=== PATIENT | male | born 1940 | race Hispanic/Latino ===

== ENCOUNTER → 2020-03-03 | Outpatient (CLI) | payer OTHER ==
[2020-03-03 15:01] LABS: BILIRUBIN,URINE NEGATIVE (NEGATIVE); UROBILINOGEN,URINE NORMAL (NEGATIVE)
[2020-03-03 15:16] LABS: APPEARANCE,URINE CLEAR (CLEAR); UA COLOR YELLOW (YELLOW)
== END | disposition home or self-care (01) ==
LOC: NPLAB 14:40
PROVIDERS: ATTEND Internal Medicine
DX: F03.91 Unspecified dementia, unspecified severity, with behavioral disturbance (principal)
CPT/HCPCS: 81002; 87804

== ENCOUNTER 2020-09-05 16:47 | Emergency (ER) | payer MEDICARE, OTHER ==
[2020-09-05 16:52] VITALS: BP 122/68
--- NOTE | 2020-09-05 17:18 | ER.PDOC ---
General Chief Complaint: Requesting Medical Care Stated Complaint: RIGHT ARM INJURY Time seen by MD: 17:11 Source: patient Exam Limitations: other (ADVANCED DEMENTIA) History of Present Illness Initial Comments UNWITNESSED FALL AT CO Occurred: this morning Where: home Severity: moderate Modifying Factors: pain on movement Allergies: Coded Allergies: No Known Allergies (Unverified , 09/05/20) Reviewed Nursing Reviewed: Vital Signs, Abn. Noted Review of Systems All Other Systems: Reviewed and Negative Physical Exam General Appearance: Alert, No Apparent Distress Hand: swelling Wrist: see diagram, tenderness, limited ROM due to pain Forearm/Elbow: nml inspection, non-tender, nml ROM Arm/Shoulder: nml inspection, non-tender, nml ROM 1 - TENDER, DEFORMITY 1 - TENDER, DEFORMITY Neuro/Vasc/Tendon: sensation nml, motor nml, no vascular compromise, tendon function nml Skin: warm/dry Head/ENT: nml inspection, pharynx nml Neck/Back: nml inspection, non-tender Respiratory: chest non-tender, breath sounds nml CVS: heart sounds normal Abdomen: non-tender, no organomegaly Splinting Splinting : Hand-Made Type: orthoglass Splint: sugar-tong Results/Orders Results/Orders Orders - CADEN GRAVES MD Xr Wrist Rt (09/05/20 17:12) Vital Signs Date Time Temp Pulse Resp B/P (MAP) Pulse Ox O2 Delivery O2 Flow Rate FiO2 09/05/20 16:52 98.0 65 16 97 09/05/20 16:52 98.0 65 16 09/05/20 16:52 98.0 65 16 122/68 (86) 97 Room Air ER DEPART Departure Time of Disposition: 18:00 Disposition: 01 HOME, SELF-CARE Impression: Primary Impression: Wrist fracture Condition: Improved Referrals: PCP,UNKNOWN (PCP) PRIMARY CARE PROVIDER Duration or Time Spent with Pa: 23M CADEN GRAVES MD Sep 05, 2020 17:18
--- NOTE | 2020-09-05 17:30 | NUR ---
ORTHO SUGARTONGE SPLINT PLACED TO R FOREARM AND PLACED IN IMMOBILIZER. PT TOLERATED WELL. CAREGIVER INSTRUCTED PT WILL NEED TO HAVE AN APPT MADE WITH DR CRESPO OFFICE ON MONDAY. SHE HAS VOICED UNDERSTANDING.
--- NOTE | 2020-09-05 17:37 | DIREP ---
PROCEDURE:XRAY WRIST MIN 3VW-RT COMPARISON:None. INDICATIONS:fall FINDINGS: BONES:Mildly comminuted fractures of the distal radial metaphysis and ulnar metaphysis. Minimal radial displacement of radius and ulnar fractures. No significant angulation seen. Old 5th metacarpal shaft fracture. JOINTS:Diffuse soft tissue swelling. Moderate 1st CMC and triscaphe degenerative changes. SOFT TISSUES:Diffuse soft tissue swelling.. OTHER:No additional findings. CONCLUSION: 1. Distal radius and ulnar fractures. 2. Osteoarthritis. Dictated by: Juarez Morales M.D. on 09/05/2020 at 05:35 PM
== END 2020-09-05 18:00 | disposition home or self-care (01) ==
LOC: ER 16:47
DX: S52.91XA Unspecified fracture of right forearm, initial encounter for closed fracture (principal); S52.691A Other fracture of lower end of right ulna, initial encounter for closed fracture; W19.XXXA Unspecified fall, initial encounter; Y93.89 Activity, other specified; Y92.098 Other place in other non-institutional residence as the place of occurrence of the external cause; Y99.8 Other external cause status
CPT/HCPCS: 29125; 99283; 73110-RT

== ENCOUNTER 2020-10-28 14:34 | Emergency (ER) | payer MEDICARE, MEDICAID ==
[~2020-10-28] VITALS: Ht 172.7 cm; Wt 63.5 kg
[2020-10-28 14:35] VITALS: BP 130/56
--- NOTE | 2020-10-28 14:54 | NUR ---
ARRIVAL PT ARRIVED TO ED WITH C/O RIGHT EAR LAC THAT OCCURED WHEN PT FELL. PT UNABLE TO ANSWER MEDICAL QUESTIONS OR QUESTIONS RELATED TO FALL D/T DEMENTIA. EMS REPORTS THAT [facility] STAFF REPORTED THAT PT IS ALERT AT HIS BASELINE. PT HAS LACERATION TO RIGHT EAR. PT HAS SIGNIFICANT SWELLING TO RIGHT WRIST. EMS REPORTS THAT [facility] STATES THAT IS IT FROM A PREVIOUS FRACTURE AND PT REFUSES TO WEAR HIS SPLINT. BEDSIDE MONITORS APPLIED. VITAL SIGNS STABLE. BED IN LOW LOCKED POSITION. PEARLA. 20G IV PLACED TO LEFT FOREARM. BLOOD COLLECTED AND TAKEN TO LAB.
--- NOTE | 2020-10-28 15:07 | ER.PDOC ---
General Chief Complaint: General Complaint Stated Complaint: FALL TRAVEL OUT OF US: No Time seen by MD: 15:01 Source: patient, EMS Exam Limitations: physical impairment History of Present Illness Initial Comments patient fell today unwitnessed at the senior living, patient fell previously and fracture right wrist. patient is demented and cannot provide history. Timing/Duration: unsure Allergies: Coded Allergies: No Known Allergies (Unverified , 09/05/20) Past Medical History Medical History: cancer, diabetes, hypertension, other Social History Drug Use: none Review of Systems Constitutional: denies fever EENTM: denies eye pain Respiratory: denies cough Cardiovascular: denies chest pain Gastrointestinal: denies abdominal pain Genitourinary: denies pain Musculoskeletal: denies neck pain Skin: denies rash Psychiatric/Neurological: denies headache Hematologic/Lymphatic: denies anemia Immunological/Allergic: denies food allergy Physical Exam General Appearance: No Apparent Distress EENT: eyes nml inspection Neck: Non-Tender Respiratory: chest non-tender, lungs clear CVS: reg rate & rhythm Gastrointestinal: Non Tender Back: Normal Inspection Extremities: Normal Range of Motion 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 ED LACERATION WOUND REPAIR # of Wounds/Lacerations Presen: 1 Wound Length (cm): 1 Wound cleaned: betadine Anesthesia type: Not Applicable/None Wound's Depth, Shape: linear Wound Explored: clean Wound Repaired With: dermabond Layer Closure?: No Retention sutures placed: No Sterile Dressing Applied?: No Sling Applied?: No Results/Orders Results/Orders Orders - DALE MADSEN MD Cbc With Auto Diff (10/28/20 15:03) Comprehensive Metabolic Panel (10/28/20 15:03) Creatine Kinase (10/28/20 15:03) Creatine Kinase Mb (10/28/20 15:03) Troponin I (10/28/20 15:03) PT (10/28/20 15:03) Partial Thromboplastin Time. (10/28/20 15:03) Xr Chest 1v (10/28/20 15:03) Ekg-Routine (10/28/20 15:03) Ct Head Wo Contrast (10/28/20 15:03) Ct Cervical Spine (10/28/20 15:03) Ct Abd/Pel With Iv Contrast (10/28/20 15:03) Xr Forearm Rt (10/28/20 15:03) Tetanus-Diphtheria Toxoids/Pf (Tenivac S (10/28/20 17:00) Vital Signs Date Time Temp Pulse Resp B/P (MAP) Pulse Ox O2 Delivery O2 Flow Rate FiO2 10/28/20 16:01 98.3 64 14 108/70 (83) 97 Room Air 10/28/20 14:35 98.3 66 14 10/28/20 14:35 98.3 66 14 130/56 (80) 97 Room Air 10/28/20 14:35 98.3 66 14 97 Laboratory Tests Test 10/28/20 14:40 White Blood Count 10.3 10^3/uL (4.5-11.0) Red Blood Count 3.23 10^6/uL (4.50-5.90) L Hemoglobin 11.0 g/dL (13.9-16.3) L Hematocrit 33.6 % (37.0-53.0) L Mean Corpuscular Volume 104.0 fL (78-100) H Mean Corpuscular Hemoglobin 34.1 pg (26-34) H Mean Corpuscular Hemoglobin Concent 32.7 g/dL (33-36.5) L Red Cell Distribution Width 14.0 % (11.5-14.5) Platelet Count 233 10^3/uL (150-400) Mean Platelet Volume 10.0 fL (7.8-11.0) Neutrophils (%) (Auto) 83.6 % (41.0-85.0) Lymphocytes (%) (Auto) 6.0 % (24.0-44.0) *L Monocytes (%) (Auto) 8.6 % (5.0-12.0) Neutrophils # (Auto) 8.6 10^3/uL (1.8-7.7) H Lymphocytes # (Auto) 0.62 10^3/uL1 (1.0-4.8) L Monocytes # (Auto) 0.9 10^3/uL (0.3-0.8) H Absolute Immature Granulocyte (auto 0.05 10^3 u/L (0-2) Absolute Eosinophils (auto) 0.1 10^3/uL (0.0-0.2) Immature Granulocytes % 0.50 % (0.00-0.50) Eosinophils % 1.1 % (0.0-5.0) Basophils % 0.2 % (0.0-0.2) Basophils # 0.0 10^3/uL (0.0-0.1) Prothrombin Time 11.8 SEC (9.3-11.3) H Prothrombin Time INR (Non-Therap) 1.2 Activated Partial Thromboplast Time 27.6 SEC (24.67-30.72) Sodium Level 137 mmol/L (132-145) Potassium Level 4.1 mmol/L (3.6-5.2) Chloride Level 100.0 mmol/L (96-109) Carbon Dioxide Level 31.3 mmol/L (20.0-32) Anion Gap 9.8 Blood Urea Nitrogen 24 mg/dL (7-18) H Creatinine 0.93 mg/dL (0.59-1.40) Estimated GFR () 94.6 (>/=60) Est GFR (CKD-EPI)(Non-Afr [place]ese) 78.2 (>/=60) BUN/Creatinine Ratio 25.0 Glucose Level 98 mg/dL (70-110) Calcium Level 8.9 mg/dL (8.4-10.5) Total Bilirubin 0.3 mg/dL (0.2-1.0) Aspartate Amino Transferase (AST) 44 U/L (0-35) H Alanine Aminotransferase (ALT) 18 U/L (12-78) Alkaline Phosphatase 115 U/L (50-136) Total Creatine Kinase 640 U/L (39-308) H Creatine Kinase MB 36.8 ng/mL (0.5-3.6) *H Troponin I < 0.02 ng/mL (0.00-0.05) Total Protein 7.2 g/dL (6.4-8.2) Albumin 3.2 g/dL (3.4-5.0) L Globulin 4.0 Albumin/Globulin Ratio 0.800 Progress Progress volar splint rue by nursing staff. head ct nad cervical ct nad ER DEPART Departure Time of Disposition: 16:49 Disposition: 01 HOME, SELF-CARE Impression: Primary Impression: Fall Additional Impression: Radius and ulna distal fracture Condition: Stable Patient Instructions: Fall Prevention and Home Safety, Laceration Care, Adult, Radius Fracture with Rehab-SportsMed Referrals: PCP,UNKNOWN (PCP) PRIMARY CARE PROVIDER DALE HURLEY MD, GIANG T MD Additional Instructions: return for any medical concerns. Duration or Time Spent with Pa: 15 Problem Qualifiers DALE MADSEN MD Oct 28, 2020 15:07
[2020-10-28 15:14] LABS: BASOPHIL % 0.2 % (0.0-0.2); EOSINOPHIL # 0.1 10^3/uL (0.0-0.2); EOSINOPHIL % 1.1 % (0.0-5.0); LYMPHOCYTES # 0.62 10^3/uL1 (1.0-4.8); MEAN CORP HGB 34.1 pg (26-34); MONOCYTES # 0.9 10^3/uL (0.3-0.8); MONOCYTES % 8.6 % (5.0-12.0); NEUTROPHIL # 8.6 10^3/uL (1.8-7.7); NEUTROPHILS % 83.6 % (41.0-85.0); PLATELET COUNT 233 10^3/uL (150-400)
--- NOTE | 2020-10-28 15:39 | PCM.EKG ---
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
[2020-10-28 15:40] LABS: CARBON DIOXIDE 31.3 mmol/L (20.0-32); GLUCOSE 98 mg/dL (70-110)
[2020-10-28 15:41] LABS: ALANINE AMINOTRANSFERASE(ML) 18 U/L (12-78); ALKALINE PHOSPHATASE 115 U/L (50-136); ASPARTATE AMINO TRANSFERASE 44 U/L (0-35); CALCIUM 8.9 mg/dL (8.4-10.5)
[2020-10-28 16:01] VITALS: BP 108/70
--- NOTE | 2020-10-28 16:17 | DIREP ---
PROCEDURE:XRAY FOREARM 2 VWS-RT COMPARISON:None. INDICATIONS:fall FINDINGS: BONES:Comminuted fracture distal radius and ulna with dorsal angulation. There is periosteal callus formation indicating subacute fracture. JOINTS:Normal. SOFT TISSUES:Normal. OTHER:No additional findings. CONCLUSION:Comminuted fractures of the distal radius and ulna with dorsal angulation. Periosteal callus formation is present indicating subacute injury. Dictated by: John Anaya M.D. on 10/28/2020 at 04:11 PM
--- NOTE | 2020-10-28 16:19 | DIREP ---
PROCEDURE:CHEST 1 VIEW COMPARISON:None. INDICATIONS:fall FINDINGS: LUNGS/PLEURA:There are increased interstitial markings in both lung bases. No consolidation. VASCULATURE:Normal. Unremarkable pulmonary vasculature. CARDIAC:Normal. No cardiac silhouette abnormality or cardiomegaly. MEDIASTINUM:Normal. No visible mass or adenopathy. BONES:Normal. No fracture or visible bony lesion. OTHER:Negative. CONCLUSION:Increased interstitial markings in both lung bases. It is uncertain if this is acute or chronic as there are no prior studies available for comparison. Dictated by: John Anaya M.D. on 10/28/2020 at 04:16 PM
--- NOTE | 2020-10-28 16:47 | DIREP ---
PROCEDURE:CT HEAD WITHOUT CONTRAST TECHNIQUE:Axial cuts were obtained through the head, without intravenous contrast material. The images were viewed at brain and bone settings. COMPARISON:None. INDICATIONS:fall FINDINGS: VENTRICLES: Normal. CEREBRUM:There is no evidence of intraparenchymal or extra-axial hemorrhage. Age-appropriate supratentorial involutional changes and chronic deep white matter ischemic changes are noted. CEREBELLUM:Normal. BRAINSTEM:Normal. SKULL:Normal. SINUSES:Normal. OTHER:Negative. CONCLUSION: 1. CT scan of the brain unremarkable for patient's age. Dictated by: Daniel Oliver M.D. on 10/28/2020 at 04:44 PM
--- NOTE | 2020-10-28 16:51 | DIREP ---
PROCEDURE: CT SPINE CERVICAL W/O COMPARISON:None. INDICATIONS:fall FINDINGS: ALIGNMENT:Reversal of cervical lordosis is demonstrated as well as grade 1 spondylolisthesis at C2/3, C4/5, and C5/6. VERTEBRAE:No fracture is demonstrated. Fairly severe diffuse spondylosis and degenerative disc disease is noted from C3/4 through C6/7. Facet arthropathy is noted at multiple levels resulting in foraminal stenosis at multiple levels. DISC DISEASE: Severe degenerative disc disease at C3/4, C4/5, C5/6, and C6/7 with complete loss of disc space height noted at the C5/6 level. PARASPINAL AREA:Normal. OTHER:Cystic changes are noted in the upper right lung most likely associated with chronic bronchitis/emphysema. CONCLUSION: 1. No fracture demonstrated. 2. Severe diffuse spondylosis, degenerative disc disease, and facet arthropathy demonstrated from C3/4 through C6/7 as described above. Reversal of cervical lordosis is noted; muscle spasm may contribute to reversal of cervical lordosis. Dictated by: Daniel Oliver M.D. on 10/28/2020 at 04:46 PM
[2020-10-28] MEDS ORDERED: TENIVAC SYRINGE IM ONE (17:00)
--- NOTE | 2020-10-28 17:17 | DIREP ---
PROCEDURE:CT ABD/PELVIS WITH CONTRAST TECHNIQUE:No oral contrast was given. Following the intravenous administration of contrast material, venous phase cuts were obtained through the abdomen and pelvis. The images were viewed at lung and soft tissue settings. Sagittal and coronal reconstructions are provided. COMPARISON:None. INDICATIONS:fall FINDINGS: LOWER CHEST:Elevated right hemidiaphragm. Chronic interstitial changes and left basilar bronchiectasis. No pleural effusion. LIVER:Probable hepatic cyst too small to characterize. BILIARY:No gallstones or biliary duct dilatation. PANCREAS:Moderate diffuse parenchymal atrophy. SPLEEN:Normal. URINARY TRACT:Normal nephrograms without obstruction or perinephric inflammation. Unremarkable urinary bladder. ADRENALS:Normal. AORTA/VASCULAR:Aortoiliac calcification without dilatation. RETROPERITONEUM:Normal. BOWEL/MESENTERY:Scattered distal colonic diverticula. No bowel obstruction, inflammatory stranding, free fluid or air. Normal appendix. ABDOMINAL WALL:Normal. PELVIS:Prostate clips. BONES:Thoracolumbar degenerative changes. No acute findings. OTHER:Normal. CONCLUSION: 1. Colonic diverticulosis without acute diverticulitis. 2. Probable small hepatic cysts. 3. No acute process. Dictated by: Rachel Haynes MD on 10/28/2020 at 05:09 PM
--- NOTE | 2020-10-28 17:31 | NUR ---
[facility] CALLED FOR TRANSFER BACK TO FACILITY.
[2020-10-28] MEDS ORDERED: ADACEL VIAL IM ONE (17:40)
--- NOTE | 2020-10-28 17:44 | NUR ---
ADICEL ADICEL INJECTION GIVEN IN LEFT ARM PER DR MADSEN. EMAR WOULD NOT LET ME ADMINISTER MEDICATION. ADICEL LOT #[id number] EXP 06/12/22
[2020-10-28 18:38] LABS: SEGMENTED NEUTROPHILS 84 % (31-76)
[2020-10-28 18:39] LABS: DIFFERENTIAL COMMENT NORMAL; EOSINOPHIL 1 % (1-4); LYMPHOCYTE 7 % (25-36); MONOCYTE 8 % (3-9)
== END 2020-10-28 18:57 | disposition home or self-care (01) ==
LOC: EDBD 14:34 → ER 14:34
DX: S52.501A Unspecified fracture of the lower end of right radius, initial encounter for closed fracture (principal); E11.9 Type 2 diabetes mellitus without complications; I10 Essential (primary) hypertension; W19.XXXA Unspecified fall, initial encounter; Y93.89 Activity, other specified; Y92.89 Other specified places as the place of occurrence of the external cause; Y99.8 Other external cause status
CPT/HCPCS: 36415; 70450; 71045; 72125; 74177; 80053; 82550; 82553; 84484; 85025; 85610; 85730; 90471; 90715; 93005; 99285; Q9965; 12001; 73090-RT

== ENCOUNTER 2020-10-29 22:14 | Emergency (ER) | payer MEDICARE, MEDICAID ==
[~2020-10-29] VITALS: Ht 182.9 cm; Wt 81.6 kg
[2020-10-29 22:17] VITALS: BP 125/53
--- NOTE | 2020-10-29 22:17 | NUR ---
ARRIVAL PT ARRIVED TO ED VIA EMS S/P FALL. PT RESIDENT AT THE [facility]. PER EMS, PT FELL WHILE STANDING; HITTING HEAD ON THE GROUND. PT HAS A 1 INCH LACERATION TO THE RIGHT AMISH WITH SWELLING. PT NOTED TO HAVE DRIED BLOOD IN RIGHT EAR, AND SWELLING TO RIGHT WRIST. PER EMS RIGHT EAR INJURY, AND RIGHT WRIST INJURY OCCURRED PREVIOUSLY. PER EMS, STAFF AT THE [facility] STATES THAT THE PT REFUSED TO WEAR THE SPLINT ON HIS RIGHT WRIST. PT HAS A PMH OF DEMENTIA AND COMMUNICATIVE DISORDER. PT IS IN NAD WITH RR EVEN AND UNLABORED. PT IS AWAKE, ALERT, AND ORIENTED ONLY TO HIS NAME. PT FOLLOWS COMMANDS.
--- NOTE | 2020-10-29 22:20 | NUR ---
RIGHT WRIST SWELLING NOTED TO RIGHT WRIST. PER EMS, PT WAS DISCHARGED WITH A SPLINT BUT SKILLED NURSING INFORMED THEM THAT HE REFUSED TO WEAR IT. PT OBSERVED TO BE MOVING RIGHT ARM, AND GRASPING SHEETS/ITEMS WITHOUT VISIBLE DISCOMFORT. CAP REFILL <2 SECONDS, COLOR WNL.
--- NOTE | 2020-10-29 22:23 | ER.PDOC ---
General Chief Complaint: Requesting Medical Care Stated Complaint: FALL Time seen by MD: 22:16 Source: EMS, [facility] Exam Limitations: clinical condition (severe dementia) History of Present Illness Initial Comments patient had a witnessed fall d/t lost his metal bonding helper on what he was holding onto; no LOC; NH staff states his mentation is at his baseline Occurred: just prior to arrival Where: other ([place]) Location: temporal (right fronto-temporal) Method of Injury: fell Associated symptoms: Memory impairment Allergies: Coded Allergies: No Known Allergies (Unverified , 09/05/20) Past Medical History Medical History: other (severe dementia) Social History Smoking: non-smoker Alcohol Use: none Drug Use: none Physical Exam General Appearance: Alert, No Apparent Distress Head: Lacerations (right frontal region 2 cm) Eye: PERRL, EOMI, No nystagmus Neck: non-tender, painless ROM Cardiovascular/Respiratory: Regular Rate, Rhythm, Normal Breath Sounds, No Respiratory Distress Gastrointestinal: Normal Bowel Sounds, Non Tender Back: Normal Inspection, No CVA Tenderness, No Vertebral Tenderness Extremities: Normal Range of Motion, Non-Tender, Normal Inspection, Pelvis Stable NEURO/PSYCH: Alert Motor/Sensory: No Motor Deficit (moves all extremities) Skin: Normal Color, Warm/Dry Lymphatic: No Adenopathy N[place]um Coma Score Best Eye Response: (4) Open Spontaneously Best Verbal Response: (4) Confused Conversation Best Motor Response: (6) Obeys Commands ED LACERATION WOUND REPAIR # of Wounds/Lacerations Presen: 1 Wound Location & Length (Requi: 2 cm lac right lateral frontal region Wound Length (cm): 2 Distal NVT: neuro intact Anesthesia type: local Wound's Depth, Shape: linear Wound Explored: clean Wound Repaired With: dermabond, steri-strips Layer Closure?: No Retention sutures placed: No Sterile Dressing Applied?: No Sling Applied?: No Results/Orders Results/Orders Orders - JULIANE CHACON DO Ct Head Wo Contrast (10/29/20 22:21) Lidocaine Hcl (Lidocaine 1% Vial) (10/29/20 22:58) Vital Signs Date Time Temp Pulse Resp B/P (MAP) Pulse Ox O2 Delivery O2 Flow Rate FiO2 10/29/20 22:17 99.4 98 20 96 10/29/20 22:17 99.4 98 20 10/29/20 22:17 99.4 98 20 125/53 (77) 96 Room Air Progress Progress ROS unobtainable d/t severe dementia and NH report is limited EKG/XRAY/CT/US CT Comments: no ICH ER DEPART Departure Time of Disposition: 23:13 Disposition: 01 HOME, SELF-CARE Impression: Primary Impression: Fall Additional Impressions: Facial laceration Head injury Condition: Improved Patient Instructions: Fall Prevention and Home Safety, Head Injury, Adult, Tissue Adhesive Wound Care Additional Instructions: Keep wound clean and dry. Return to ER if you develop any signs of infection. Duration or Time Spent with Pa: 30 min Problem Qualifiers Primary Impression: Fall Encounter type: initial encounter Qualified Codes: W19.XXXA - Unspecified fall, initial encounter Additional Impressions: Facial laceration Encounter type: initial encounter Qualified Codes: S01.81XA - Laceration without foreign body of other part of head, initial encounter Head injury Encounter type: initial encounter Qualified Codes: S09.90XA - Unspecified injury of head, initial encounter JULIANE CHACON DO Oct 29, 2020 22:23
--- NOTE | 2020-10-29 22:25 | NUR ---
WOUND CARE DRIED BLOOD NOTED TO RIGHT SIDE OF PT'S FACE, AND RIGHT EAR. PT'S RIGHT EAR AND RIGHT FOREHEAD CLEANSED WITH NORMAL SALINE AT THIS TIME. BULKY DRESSING APPLIED TO FOREHEAD AT THIS TIME FOR COMPLETION OF CT SCAN. PT TOLERATED WOUND CARE WELL
--- NOTE | 2020-10-29 22:54 | NUR ---
CT PT TRANSPORTED TO CT WITH TECH AND RN. PT UNCOOPERATIVE IN CT WHILE NOXIOUS STIUMLI PRESENT (IE. FOREHEAD STRAP). PT RETURNED TO ED AND PLACED IN ROOM 8 WITHIN VIEW OF RN ON IN-ROOM CAMERA.
[2020-10-29] MEDS ORDERED: LIDOCAINE 1% VIAL ONE (22:58)
--- NOTE | 2020-10-29 22:59 | NUR ---
Cristhian colon in EDM - 10/29/20 at 2312 by ELIZABETH LAC REPAIR ADELAIDA CHACON AT [facility].
--- NOTE | 2020-10-29 23:07 | NUR ---
RT FOREHEAD LACERATION CLOSED WITH DERMABOND, WELL APPROXIMATED- 2 STERI STRIPS APPLIED- WOUND CLEAN AND DRY
--- NOTE | 2020-10-29 23:10 | DIREP ---
PROCEDURE:CT HEAD OR BRAIN W/O CONTRAST COMPARISON:[facility], CT, CT HEAD BRAIN W/O CONTRAST, 10/28/2020, 04:23 PM. INDICATIONS:head injury TECHNIQUE:CT images were created without intravenous contrast. FINDINGS: VENTRICLES:There is moderate prominence of the ventricles and cortical sulci consistent with age related involutional changes. CEREBRUM:Severe confluent regions of diminished attenuation in the supratentorial white matter consistent with severe leukoaraiosis. No loss of maldonado-white junction to suggest acute infarct. Benign basal ganglia calcifications. No hemorrhage, midline shift or abnormal extra-axial fluid collection. CEREBELLUM:Negative. BRAINSTEM:Negative. BASAL CISTERNS:Negative. HEMORRHAGE:No MASS LESION:No ACUTE INFARCT:No SKULL:Normal. SINUSES:Normal. OTHER:Mild right lateral scalp subcutaneous hematoma CONCLUSION:Mild right lateral scalp subcutaneous hematoma. No visible acute hemorrhage or infarct. Leukoaraiosis, atrophy again noted. Dictated by: Phil Vallejo M.D. on 10/29/2020 at 11:06 PM
--- NOTE | 2020-10-29 23:17 | NUR ---
REPORT CALLED CALL PLACED TO [facility], SPOKE WITH RICARDO. INFORMED RICARDO ON LACERATION REPAIR, CT, AND PT CONDITION. ALL QUESTIONS ANSWERED. PER RICARDO, THEY WILL TRY TO ARRANGE TRANSPORT BACK TO [facility].
--- NOTE | 2020-10-29 23:39 | NUR ---
REASSESSMENT PT CALM AND COOPERATIVE ONCE NOXIOUS STIMULI REMOVED (IE.BP CUFF). PT FOLLOWS COMMANDS, AND APPEARS TO BE RESTING QUIETLY.
--- NOTE | 2020-10-29 23:45 | NUR ---
RIGHT WRIST MASON BANDAGE MASON WRAP APPLIED TO RIGHT WRIST. PT BECAME IRATE, SCREAMING IN ROOM. PT WAS CALMED AND REASSURED. PT NOTED TO HAVE REMOVED THE MASON WRAP TO RIGHT WRIST. MASON BANDAGE REAPPLIED MULTIPLE TIMES, AND WAS REMOVED BY PT MULTIPLE TIMES.
[2020-10-29 23:52] VITALS: BP 117/62
[2020-10-30 00:10] VITALS: BP 133/68
--- NOTE | 2020-10-30 00:18 | NUR ---
DEPART INFORMATION CALL RECEIVED FROM [facility] BY ILIR HILL. PER ILIR HILL [facility] IS UNABLE TO ALOCATE TRANSPORTATION HOME. REQUESTING TO CONTACT EMS TO TRANSPORT HOME. DISPATCH CALLED, EMS ARRIVED TO PT BEDSIDE AT 00:16, AND INFORMED OF PT CARE WHILE IN THE ED. DISCHARGE PACKET, FACE SHEET, LAST VITAL SIGNS, AND RESULTS SENT IN AN ENVELOPE WITH EMS. UPON DISCHARGE, PT IN NAD WITH RR EVEN AND UNLABORED. LEFT AC 20G REMOVED AT THIS TIME. IV CATHETER WAS REMOVED INTACT WITH NO RESISTANCE, DIRECT PRESSURE APPLIED, BANDAGE, GAUZE, AND COBAND APPLIED. PT TOLERATED WELL.
== END 2020-10-30 00:18 | disposition home or self-care (01) ==
LOC: EDBD 22:14 → ER 22:14
DX: S01.81XA Laceration without foreign body of other part of head, initial encounter (principal); W19.XXXA Unspecified fall, initial encounter; Y93.89 Activity, other specified; Y92.89 Other specified places as the place of occurrence of the external cause; Y99.8 Other external cause status
CPT/HCPCS: 12011; 70450; 99284; J2001